=== PATIENT | female | born 1960 ===

== ENCOUNTER 2018-10-01 08:09 | Outpatient (CLI) | payer OTHER ==
[~2018-10-01] VITALS: Ht 160 cm; Wt 124.7 kg
== END 2018-10-01 09:53 | disposition home or self-care (01) ==
LOC: OFIC 805 08:09
DX: J35.1 Hypertrophy of tonsils (principal); R13.19 Other dysphagia; K21.0 Gastro-esophageal reflux disease with esophagitis

== ENCOUNTER 2018-10-06 10:35 | Outpatient (CLI) | payer OTHER ==
[~2018-10-06] VITALS: Ht 152.4 cm; Wt 124.7 kg
== END 2018-10-06 14:05 | disposition home or self-care (01) ==
LOC: OFIC 805 10:35
DX: J35.1 Hypertrophy of tonsils (principal); R13.19 Other dysphagia; K21.0 Gastro-esophageal reflux disease with esophagitis

== ENCOUNTER 2018-11-04 07:32 | Outpatient (CLI) | payer OTHER ==
[~2018-11-04] VITALS: Ht 152.4 cm; Wt 124.7 kg
[2018-11-04] MEDS ORDERED: FLONASE16 GM NASAL (10:00)
[2018-11-04] MEDS ORDERED: CLARITIN10 MG PO (10:00)
== END 2018-11-04 14:51 | disposition home or self-care (01) ==
LOC: OFIC 805 07:32
DX: J35.1 Hypertrophy of tonsils (principal); R13.19 Other dysphagia; K21.0 Gastro-esophageal reflux disease with esophagitis; M47.892 Other spondylosis, cervical region; M48.14 Ankylosing hyperostosis [Forestier], thoracic region; E66.1 Drug-induced obesity; J31.0 Chronic rhinitis; J34.2 Deviated nasal septum